=== PATIENT | female | born 1950 | race Caucasian/White ===

== ENCOUNTER 2021-05-07 16:10 | Inpatient (IN) | payer MEDICARE, MEDICAID ==
[~2021-05-07] VITALS: Ht 157.5 cm; Wt 115.4 kg
[2021-05-07] MEDS ORDERED: DEXAMETHASONE SOD PHOS 4 MG/ML VIAL IVP ONE (17:00)
[2021-05-07] MEDS ORDERED: ONDANSETRON HCL 4 MG/2 ML VIAL IVP ONE (17:00)
[2021-05-07 17:24] LABS: BASOPHILS % (AUTO) 0.4 % (0.0-2.0); EOSINOPHILS % (AUTO) 1.5 % (1.0-6.0); HEMATOCRIT 39.6 % (36-46); HEMOGLOBIN 12.9 g/dL (12.0-16.0); LYMPHOCYTES # (AUTO) 2.2 K/uL (1.0-4.8); MEAN CORPUSCULAR HEMOGLOBIN 30.7 pg (26.0-34.0); MEAN CORPUSCULAR HGB CONC 32.7 G/dL (31.0-37.0); MEAN CORPUSCULAR VOLUME 94 fL (80-100); MONOCYTES # (AUTO) 0.3 K/uL (0.1-1.0); MONOCYTES % (AUTO) 5.1 % (2.0-9.0); NEUTROPHILS # (AUTO) 3.7 K/uL (1.8-7.7); PLATELET COUNT (AUTO) 210 K/uL (150-450); RED BLOOD CELL COUNT(AUTO) 4.21 MIL/uL (4.00-5.20); RED CELL DISTRIBUTION WIDTH 14.1 % (11.5-14.5)
[2021-05-07 17:41] LABS: ANION GAP 5 mmol/L (8-16); CALCIUM, TOTAL 8.7 mg/dL (8.8-10.5); CARBON DIOXIDE 28 mmol/L (22-29); CHLORIDE 108 mmol/L (98-107); GLOMERULAR FILTR. RATE CALC > 60 mL/min (>60); GLUCOSE,RANDOM 142 mg/dL (70-110); POTASSIUM 3.4 mmol/L (3.5-5.1); SODIUM SERUM 141 mmol/L (136-145); UREA NITROGEN, BLOOD 20 mg/dL (7-18)
[2021-05-07 17:43] LABS: COVID AG,FIA SOURCE NASOPHARYNGEAL
[2021-05-07 17:47] LABS: ALANINE AMINOTRANSFERASE 12 U/L (12-78); ALBUMIN 2.7 g/dL (3.4-5.0); ALKALINE PHOSPHATASE 90 U/L (46-116); ASPARTATE AMINOTRANSFERASE 16 U/L (15-37); BILIRUBIN,TOTAL 0.4 mg/dL (0.1-1.0); CREATINE KINASE, TOTAL ONLY 35 U/L (26-192); TOTAL PROTEIN, SERUM 7.1 g/dL (6.4-8.2)
[2021-05-07 17:51] LABS: INR 1.1 (0.9-1.1); PROTHROMBIN TIME 11.9 SEC (9.4-11.6)
[2021-05-07 17:56] LABS: B-TYPE NATRIURETIC PEPTIDE 670 pg/mL (0-100)
[2021-05-07 18:01] LABS: D-DIMER 0.57 mg/L FEU (0.00-0.50)
[2021-05-07 18:19] LABS: C-REACTIVE PROTEIN QUANT 0.19 mg/dL (0.00-0.30); FERRITIN 62 ng/mL (8-252)
[2021-05-07 18:21] LABS: GLUCOMETER DEV NAME(LOC) ERT.5; GLUCOSE,POINT OF CARE 131 MG/DL (70-110)
[2021-05-07 18:48] LABS: INFLUENZA TYPE A NEGATIVE FOR TYPE A (NEGATIVE); INFLUENZA TYPE B NEGATIVE FOR TYPE B (NEGATIVE)
[2021-05-07] MEDS ORDERED: PIPERACILLIN/TAZO 3.375 GM/D5W 50 ML IV ONE (19:15)
[2021-05-07] MEDS ORDERED: VANCOMYCIN HCL 1 GM/D5% WATER 200 ML IV ONE (19:15)
[2021-05-07] MEDS ORDERED: AZITHROMYCIN 500 MG/NS 250 ML IV ONE (19:15)
[2021-05-07 19:41] LABS: ABG BASE EXCESS 0.7 mmol/L (-2.0-3.0); ABG CARBOXYHEMOGLOBIN 0.7 % (0.0-1.5); ABG HCO3 24.7 mmol/L (22.0-26.0); ABG METHEMOGLOBIN 0.3 % (0.0-1.5); ABG OXYGEN CONTENT 18.4 mL/dL (15.0-23.0); ABG OXYGEN SATURATION 93.7 % (95.0-98.0); ABG OXYHEMOGLOBIN 92.8 % (94.0-100.0); ABG PCO2 45 mmHg (35-45); ABG PH 7.375 (7.35-7.450); ABG TOTAL HEMOGLOBIN 14.1 G/dL (12.0-18.0); SITE, BLOOD GAS RT BRACHIAL; SOURCE, BLOOD GAS ARTERIAL; TEMPERATURE, FAHRENHEIT, BG 98.4 FAHREN (96.0-98.6)
[2021-05-07] MEDS ORDERED: DEXTROSE 50%-WATER 25 GM/50 ML SYRINGE IVP PRN (20:00)
[2021-05-07] MEDS ORDERED: MAGNESIUM HYDROXIDE SUSPENSION 30 ML UDCUP PO PRN (20:00)
[2021-05-07] MEDS ORDERED: ACETAMINOPHEN 325 MG TABLET PO PRN (20:00)
[2021-05-07] MEDS ORDERED: BISACODYL 10 MG RECTAL RECTAL SUPPOSITORY PR PRN (20:00)
[2021-05-07] MEDS ORDERED: CefTRIAXone 1 GM/DEXTROSE 50 ML IV ONE (20:00)
[2021-05-07] MEDS ORDERED: ONDANSETRON HCL 4 MG/2 ML VIAL IVP PRN (20:00)
[2021-05-07] MEDS ORDERED: ZOLPIDEM TARTRATE 5 MG TABLET PO PRN (20:00)
[2021-05-07] MEDS ORDERED: 0.9% SODIUM CHLORIDE 10 ML SYRINGE IVP PRN (20:00)
[2021-05-07] MEDS ORDERED: ALBUTEROL SULFATE 2.5 MG/0.5 ML NEB SOLUTION NEB PRN (20:00)
[2021-05-07] MEDS ORDERED: IPRATROPIUM BROMIDE 0.5 MG/2.5 ML NEB SOLUTION NEB PRN (20:00)
[2021-05-07] MEDS: DOCUSATE SODIUM 100 MG CAPSULE PO SCH (22:31)
[2021-05-07 23:09] LABS: APPEARANCE,URINE CLEAR (CLEAR); BILIRUBIN,URINE NEGATIVE (NEGATIVE); GLUCOSE, URINE (UA) NEGATIVE (NEGATIVE); KETONES,URINE NEGATIVE (NEGATIVE); LEUKOCYTE ESTERASE ,URINE NEGATIVE (NEGATIVE); NITRATE,URINE NEGATIVE (NEGATIVE); OCCULT BLOOD,URINE NEGATIVE (NEGATIVE); PROTEIN,URINE SEE CONFIRM (NEGATIVE); UROBILINOGEN,URINE 0.2 mg/dL (<=1.0)
[2021-05-07 23:28] LABS: SULFOSALICYLIC ACID,URINE 4+ (Negative)
[2021-05-07 23:30] LABS: BACTERIA,URINE Rare /HPF (None Seen); RBC,URINE 0-2 /HPF (0-2); WBC,URINE 0-2 /HPF (0-5)
[2021-05-07] MEDS: HEPARIN SODIUM,PORCINE 5,000 UNITS/ML VIAL SQ SCH (23:37)
[2021-05-07] MEDS: ONDANSETRON HCL 4 MG/2 ML VIAL IVP PRN (23:45)
[2021-05-08] MEDS: ONDANSETRON HCL 4 MG/2 ML VIAL IVP PRN ×2 (04:25→21:16)
[2021-05-08 05:21] LABS: GLUCOMETER DEV NAME(LOC) ERT.5; GLUCOSE,POINT OF CARE 123 MG/DL (70-110)
[2021-05-08 05:33] LABS: BASOPHILS % (AUTO) 0.1 % (0.0-2.0); EOSINOPHILS % (AUTO) 0 % (1.0-6.0); HEMATOCRIT 40.8 % (36-46); HEMOGLOBIN 13.8 g/dL (12.0-16.0); LYMPHOCYTES % (AUTO) 16.6 % (22.0-44.0); MEAN CORPUSCULAR HEMOGLOBIN 31.4 pg (26.0-34.0); MEAN CORPUSCULAR HGB CONC 33.8 G/dL (31.0-37.0); MEAN CORPUSCULAR VOLUME 93 fL (80-100); MONOCYTES # (AUTO) 0.1 K/uL (0.1-1.0); MONOCYTES % (AUTO) 2.1 % (2.0-9.0); NEUTROPHILS # (AUTO) 4.7 K/uL (1.8-7.7); NEUTROPHILS % (AUTO) 81.2 % (40.0-70.0); PLATELET COUNT (AUTO) 218 K/uL (150-450); RED BLOOD CELL COUNT(AUTO) 4.39 MIL/uL (4.00-5.20); RED CELL DISTRIBUTION WIDTH 14.2 % (11.5-14.5)
[2021-05-08 05:50] LABS: ALANINE AMINOTRANSFERASE 14 U/L (12-78); ALBUMIN 2.7 g/dL (3.4-5.0); ALKALINE PHOSPHATASE 92 U/L (46-116); ANION GAP 3 mmol/L (8-16); ASPARTATE AMINOTRANSFERASE 14 U/L (15-37); BILIRUBIN,TOTAL 0.5 mg/dL (0.1-1.0); CALCIUM, TOTAL 8.9 mg/dL (8.8-10.5); CARBON DIOXIDE 32 mmol/L (22-29); CHLORIDE 106 mmol/L (98-107); CHOL/HDL RATIO 2.6 (3.9-5.7); CHOLESTEROL 127 mg/dL (131-200); FREE T4 (FREE THYROXINE) 1.22 ng/dL (0.76-1.46); GLOMERULAR FILTR. RATE CALC > 60 mL/min (>60); GLUCOSE,RANDOM 136 mg/dL (70-110); HDL CHOLESTEROL 49 mg/dL (40-60); LDL CHOL (CALC.) 67 mg/dL (0-130); POTASSIUM 4.5 mmol/L (3.5-5.1); SODIUM SERUM 141 mmol/L (136-145); TOTAL PROTEIN, SERUM 7.2 g/dL (6.4-8.2); TRIGLYCERIDES 53 mg/dL (15-150); UREA NITROGEN, BLOOD 19 mg/dL (7-18)
[2021-05-08 07:11] LABS: HEMOGLOBIN A1C 5.6 % (3.8-5.6)
[2021-05-08] MEDS: HEPARIN SODIUM,PORCINE 5,000 UNITS/ML VIAL SQ SCH ×2 (07:29→17:47)
[2021-05-08] MEDS: FUROSEMIDE 40 MG/4 ML VIAL IVP SCH (08:57)
[2021-05-08] MEDS: PANTOPRAZOLE SODIUM 40 MG/VIAL IVP SCH (08:57)
[2021-05-08] MEDS: DOCUSATE SODIUM 100 MG CAPSULE PO SCH ×2 (08:57→21:15)
[2021-05-08] MEDS: ACETAMINOPHEN 325 MG TABLET PO PRN (09:53)
[2021-05-08] MEDS: MORPHINE SULFATE 2 MG/ML SYRINGE IVP PRN (12:21)
[2021-05-08 16:00] VITALS: BP 128/52
[2021-05-08 20:00] VITALS: BP 95/49
[2021-05-08] MEDS ORDERED: CefTRIAXone 1 GM/DEXTROSE 50 ML IV SCH (21:00)
[2021-05-08] MEDS ORDERED: SODIUM CHLORIDE 0.9% 250 ML IV ONE (21:07)
[2021-05-08] MEDS ORDERED: AZITHROMYCIN 500 MG/NS 250 ML IV SCH (22:00)
[2021-05-08 22:21] LABS: GLUCOSE,POINT OF CARE 123 MG/DL (70-110)
[2021-05-08] MEDS: INSULIN LISPRO 100 UNITS/ML SQ PRN (22:33)
[2021-05-09] VITALS (7 sets, daily range): BP systolic 125–172; BP diastolic 47–87
[2021-05-09 06:46] LABS: GLUCOSE,POINT OF CARE 93 MG/DL (70-110)
[2021-05-09] MEDS: HEPARIN SODIUM,PORCINE 5,000 UNITS/ML VIAL SQ SCH ×4 (08:43→23:10)
[2021-05-09] MEDS: PANTOPRAZOLE SODIUM 40 MG/VIAL IVP SCH (09:47)
[2021-05-09] MEDS: DOCUSATE SODIUM 100 MG CAPSULE PO SCH ×2 (09:47→20:01)
[2021-05-09] MEDS: FUROSEMIDE 40 MG/4 ML VIAL IVP SCH (09:48)
[2021-05-09] MEDS: CefTRIAXone 1 GM/DEXTROSE 50 ML IV SCH (16:26)
[2021-05-09] MEDS: AZITHROMYCIN 500 MG/NS 250 ML IV SCH (16:27)
[2021-05-09] MEDS ORDERED: SODIUM CHLORIDE 0.9% 250 ML IV ONE (16:30)
[2021-05-09] MEDS: MORPHINE SULFATE 2 MG/ML SYRINGE IVP PRN (20:02)
[2021-05-10] MEDS: HYDROCODONE/ACETAMINOPHEN 5-325 MG TABLET PO PRN ×2 (00:05→06:44)
[2021-05-10] MEDS: MORPHINE SULFATE 2 MG/ML SYRINGE IVP PRN (03:12)
[2021-05-10 03:30] VITALS: BP 141/71
[2021-05-10 06:31] LABS: GLUCOMETER DEV NAME(LOC) 5N.3; GLUCOSE,POINT OF CARE 100 MG/DL (70-110)
[2021-05-10 07:01] LABS: GLUCOMETER DEV NAME(LOC) 5S.2B; GLUCOSE,POINT OF CARE 105 MG/DL (70-110)
[2021-05-10 07:01] LABS: GLUCOMETER DEV NAME(LOC) 5S.2B; GLUCOSE,POINT OF CARE 124 MG/DL (70-110)
[2021-05-10 07:06] LABS: GLUCOMETER DEV NAME(LOC) 5S.2B; GLUCOSE,POINT OF CARE 104 MG/DL (70-110)
[2021-05-10] MEDS: DOCUSATE SODIUM 100 MG CAPSULE PO SCH ×2 (08:02→21:00)
[2021-05-10] MEDS: FUROSEMIDE 40 MG/4 ML VIAL IVP SCH (08:02)
[2021-05-10] MEDS: PANTOPRAZOLE SODIUM 40 MG/VIAL IVP SCH (08:02)
[2021-05-10] MEDS: HEPARIN SODIUM,PORCINE 5,000 UNITS/ML VIAL SQ SCH ×3 (08:02→23:19)
[2021-05-10 08:36] VITALS: BP 132/70
[2021-05-10 12:00] VITALS: BP 122/66
[2021-05-10] MEDS: CefTRIAXone 1 GM/DEXTROSE 50 ML IV SCH (15:00)
[2021-05-10] MEDS: AZITHROMYCIN 500 MG/NS 250 ML IV SCH (15:00)
[2021-05-10 16:58] VITALS: BP 136/59
[2021-05-10 17:06] LABS: GLUCOMETER DEV NAME(LOC) 5S.1; GLUCOSE,POINT OF CARE 165 MG/DL (70-110)
[2021-05-10 17:11] LABS: GLUCOMETER DEV NAME(LOC) 5S.1; GLUCOSE,POINT OF CARE 140 MG/DL (70-110)
[2021-05-10] MEDS: INSULIN LISPRO 100 UNITS/ML SQ PRN (18:32)
[2021-05-10 20:02] VITALS: BP 95/56
[2021-05-10] MEDS: ACETAMINOPHEN 325 MG TABLET PO PRN (23:19)
[2021-05-11 00:34] VITALS: BP 93/43
[2021-05-11] MEDS: DOCUSATE SODIUM 100 MG CAPSULE PO SCH ×2 (07:56→20:35)
[2021-05-11] MEDS: FUROSEMIDE 40 MG/4 ML VIAL IVP SCH (07:56)
[2021-05-11] MEDS: PANTOPRAZOLE SODIUM 40 MG/VIAL IVP SCH (07:57)
[2021-05-11] MEDS: HEPARIN SODIUM,PORCINE 5,000 UNITS/ML VIAL SQ SCH ×2 (07:57→17:36)
[2021-05-11 08:00] VITALS: BP 101/66
[2021-05-11] MEDS ORDERED: SODIUM CHLORIDE 0.9% 100 ML ONE (09:35)
[2021-05-11] MEDS ORDERED: IOHEXOL 350 MG/ML 100 ML VIAL ONE (09:35)
[2021-05-11 12:30] VITALS: BP 105/60
[2021-05-11 14:17] LABS: GLUCOMETER DEV NAME(LOC) 5S.2B; GLUCOSE,POINT OF CARE 86 MG/DL (70-110)
[2021-05-11 16:07] VITALS: BP 132/92
[2021-05-11 17:22] LABS: GLUCOMETER DEV NAME(LOC) 5S.1; GLUCOSE,POINT OF CARE 111 MG/DL (70-110)
[2021-05-11 17:22] LABS: GLUCOMETER DEV NAME(LOC) 5S.1; GLUCOSE,POINT OF CARE 104 MG/DL (70-110)
[2021-05-11] MEDS: AZITHROMYCIN 500 MG/NS 250 ML IV SCH (17:35)
[2021-05-11] MEDS: CefTRIAXone 1 GM/DEXTROSE 50 ML IV SCH (17:35)
[2021-05-11] MEDS: INSULIN LISPRO 100 UNITS/ML SQ PRN (17:50)
[2021-05-11 18:01] LABS: GLUCOMETER DEV NAME(LOC) 5S.2B; GLUCOSE,POINT OF CARE 149 MG/DL (70-110)
[2021-05-11 19:55] VITALS: BP 133/77
[2021-05-11 23:46] VITALS: BP 129/87
[2021-05-12] MEDS: HEPARIN SODIUM,PORCINE 5,000 UNITS/ML VIAL SQ SCH ×3 (00:08→15:20)
[2021-05-12 04:18] VITALS: BP 134/70
[2021-05-12 07:51] VITALS: BP 117/58
[2021-05-12] MEDS: FUROSEMIDE 40 MG/4 ML VIAL IVP SCH (08:26)
[2021-05-12] MEDS: DOCUSATE SODIUM 100 MG CAPSULE PO SCH ×2 (08:26→08:27)
[2021-05-12] MEDS: PANTOPRAZOLE SODIUM 40 MG/VIAL IVP SCH (08:26)
[2021-05-12 11:11] VITALS: BP 141/80
[2021-05-12] MEDS ORDERED: AZITH500IV IV (12:12)
[2021-05-12] MEDS ORDERED: CEFX2I IV (12:13)
[2021-05-12] MEDS ORDERED: HEPA500018 SQ (12:13)
[2021-05-12] MEDS ORDERED: ACET-2247 PO (12:14)
[2021-05-12] MEDS ORDERED: HYDR-4723 PO (12:14)
[2021-05-12] MEDS: ACETAMINOPHEN 325 MG TABLET PO PRN (12:20)
[2021-05-12] MEDS: CefTRIAXone 1 GM/DEXTROSE 50 ML IV SCH (13:35)
[2021-05-12 15:08] VITALS: BP 135/56
[2021-05-12] MEDS: AZITHROMYCIN 500 MG/NS 250 ML IV SCH (15:20)
[2021-05-12 16:06] LABS: GLUCOMETER DEV NAME(LOC) 5S.2B; GLUCOSE,POINT OF CARE 124 MG/DL (70-110)
[2021-05-12 16:06] LABS: GLUCOMETER DEV NAME(LOC) 5S.2B; GLUCOSE,POINT OF CARE 108 MG/DL (70-110)
[2021-05-12 16:06] LABS: GLUCOMETER DEV NAME(LOC) 5S.2B; GLUCOSE,POINT OF CARE 132 MG/DL (70-110)
[2021-05-13 11:46] LABS: GLUCOMETER DEV NAME(LOC) 5N.3; GLUCOSE,POINT OF CARE 83 MG/DL (70-110)
== END 2021-05-12 18:30 | DRG 189 ==
LOC: EMS 16:12 → ICU 05-08 10:35 → 5S 05-08 11:00
PROVIDERS: ADMIT Hospitalist; ATTEND Hospitalist
DX: J96.01 Acute respiratory failure with hypoxia (principal); E43 Unspecified severe protein-calorie malnutrition; J18.9 Pneumonia, unspecified organism; Z68.42 Body mass index [BMI] 45.0-49.9, adult; Z20.822 Contact with and (suspected) exposure to COVID-19; E87.6 Hypokalemia; I50.9 Heart failure, unspecified; I27.20 Pulmonary hypertension, unspecified; E78.5 Hyperlipidemia, unspecified; E11.9 Type 2 diabetes mellitus without complications; E78.00 Pure hypercholesterolemia, unspecified; Z87.891 Personal history of nicotine dependence
CPT/HCPCS: 36600; 71045; 71275; 80053; 80061; 81001; 81002; 82550; 82728; 82805; 82962; 83036; 83880; 84439; 84443; 84484; 85025; 85379; 85610; 85730; 86140; 87804; 93005; 93306; 97110; 97116; 97162; 97166; 97530; 97535; 99291; C9113; G0378; J0456; J0696; J1100; J1644; J1940; J2270; J2405; J2543; J3370; J7050; Q9967; 36415-L1; 36415-TC; U0003